=== PATIENT | female | born 1960 | race Caucasian/White ===

== ENCOUNTER 2025-07-12 13:45 | Emergency (ER) | payer OTHER ==
[~2025-07-12] VITALS: Ht 165.1 cm; Wt 65.3 kg
[2025-07-12 14:28] LABS: Hematocrit 40.2 % (36.0-46.0); Hemoglobin 13.8 g/dL (12.2-16.2); Mean Corpuscular Hemoglobin 31.4 pg (28.0-32.0); Mean Corpuscular Volume 91.4 fL (80.0-100.0); Nucleated Red Blood Cells % 0.0 %
--- NOTE | 2025-07-12 14:32 | ED.PDOC ---
GI ASSESSMENT HPI Comments HPI: Tommy 65 y.o female presents to the ED for a chief complaint of right sided abdominal pain radiating to her epigastric region x 3 days. Patient reports pain was initially constant however has been intermittent. She mentions last bowel movement was today . Patient denies any nausea, vomiting, fever, chills, diarrhea. Initial Vitals BP: 137/93 HR: 73 RR: 16 O2: 97% RA Temp: 98.3 F Past Medical History: Diverticulitis dx via colonoscopy Family history of: Pancreatic cancer- mother Past Surgical History: Denies Social History: Denies Allergies: NKDA HPI: Poor Historian. REVIEW OF SYSTEMS: CONSTITUTIONAL: Denies acute: fever, diaphoresis, chills, generalized weakness. HEAD: Denies acute: headache, photophobia Eyes: Denies acute: Double vision, vision loss, eye pain, eye discharge. EARS: Denies acute: tinnitus, hearing loss, ear discharge, ear pain, THROAT: Denies acute: sore throat, swelling, difficulty swallowing , pain with swallowing, change in voice. NECK: Denies acute: neck pain, neck swelling, stiff neck. HEART: Denies acute : chest pain, palpitations, LUNGS: Denies acute: SOB, wheezing, cough, hemoptysis ABDOMEN: Denies acute: Nausea, Vomiting, diarrhea, melena , hematemesis, hematochezia SKIN: Denies acute: rash, redness, lesions, itchiness. EXTREMITIES: Denies acute: calf pain, numbness, tingling, weakness, denies pain in extremity. Denies acute: Low back pain. Neuro: Denies acute: focal neurological deficit, motor or sensory focal neurological deficit, tremors, seizure like activity, confusion, dizziness, change in mental status, loss of bowel or bladder function, cauda equina like symptoms. : Denies acute: dysuria, hematuria, flank pain, increase in urinary frequency. PSYCH: Denies acute: hallucination, suicidal ideation, homicidal ideation. FEMALE: Denies acute: abnormal vaginal bleeding, foul odor, unusual discharge. PHYSICAL EXAM: General: ----no----acute distress, awake and alert. Head: normocephalic, atraumatic. No raccoon's eyes, no hough sign. Neck: supple, trachea is midline, no swelling. Throat: Normal phonation. Eyes:, no erythema, no purulent discharge, no proptosis, no icterus. Heart: regular rate, regular rhythm, no significant murmur appreciated. Lungs: no apparent respiratory distress, Able to speak in full sentences. No wheezing, no rhonchi, no crackles. No stridors Clear to auscultation bilaterally. Abdomen: Mild epigastric tender to palpation, non distended, soft, no guarding, no rebound, + bowel sounds. Mild right lower quadrant tenderness to palpation. Neuro: Awake, Alert, oriented to name, self, situation, follows commands GCS=15. Speech is normal. Skin: no petechia, no purpura, no cyanosis, non-pale, not jaundice. Lower extremities: --no - Pitting edema no deformity, no focal swelling, no calf TTP. Makes eye contact. moves all four extremities. Face: no apparent facial droop. y. Ambulating in the ED independently. ED COURSE: DISCLAIMER: This medical document was created using an electronic medical record system with voice recognition software and computerized dictation system. Although this document has been carefully reviewed, there might still be some phonetic and typographical errors. Occasional wrong-word or "sound-alike" substitutions may h ave occurred due to the inherent limitations of voice recognition software. These areas are purely typographical due to imperfections of the software programs and do not reflect any compromise in the patient's medical care. Please read the chart carefully and recognize, using context, where these substitutions have occurred. Chief Complaint: Abdominal Pain Time Seen by MD: 14:08 Reviewed Notes: Allergies Allergies: Coded Allergies: No Known Drug Allergy (Verified Allergy, Unknown, 07/12/25) Home Meds Active Scripts Ciprofloxacin Hcl (Cipro) 500 Mg Tab, 500 MG PO BID for 7 Days, #14 TAB Prov:ARIANNE ZAPIEN DO 07/12/25 Metronidazole (Flagyl) 500 Mg Tab, 1 TAB PO TID for 7 Days, #21 TAB Prov:ARIANNE ZAPIEN DO 07/12/25 Information Source: Patient Mode of Arrival: Ambulatory Duration: Since onset Was a procedure done? Was a procedure done?: No GI differential Dx Differential Diagnosis: Esophagitis, Gastritis/PUD, Gastroenteritis X-Ray, Labs, Meds, VS Vital Signs Date Time Temp Pulse Resp B/P (MAP) Pulse Ox O2 Delivery O2 Flow Rate FiO2 07/12/25 17:05 98.0 72 18 132/68 (89) 98 98.0 07/12/25 17:05 72 18 98 Room Air 07/12/25 13:47 98.3 73 16 137/93 97 98.3 Lab Test 07/12/25 14:15 07/12/25 14:10 Range/Units White Blood Count 9.8 4.4-10.8 10^3/uL Red Blood Count 4.40 4.0-5.20 10^6/uL Hemoglobin 13.8 12.2-16.2 g/dL Hematocrit 40.2 36.0-46.0 % Mean Corpuscular Volume 91.4 80.0-100.0 fL Mean Corpuscular Hemoglobin 31.4 28.0-32.0 pg Mean Corpuscular Hemoglobin Concent 34.4 32.0-36.0 g/dL Red Cell Distribution Width 13.0 11.8-14.3 % Platelet Count 334 140-450 10^3/uL Mean Platelet Volume 7.1 6.9-10.8 fL Neutrophils (%) (Auto) 58.5 37.0-80.0 % Lymphocytes (%) (Auto) 30.9 10.0-50.0 % Monocytes (%) (Auto) 8.2 0.0-12.0 % Eosinophils (%) (Auto) 1.8 0.0-7.0 % Basophils (%) (Auto) 0.6 0.0-2.0 % Neutrophils # (Auto) 5.7 1.6-8.6 10 ^3/uL Lymphocytes # (Auto) 3.0 0.4-5.4 10 ^3/uL Monocytes # (Auto) 0.8 0-1.3 10 ^3/uL Eosinophils # (Auto) 0.2 0-0.8 10 ^3/uL Basophils # (Auto) 0.1 0-0.2 10 ^3/uL Nucleated Red Blood Cells 0.0 % Sodium Level 139 136-145 mmol/L Potassium Level 4.4 3.5-5.1 mmol/L Chloride Level 102 98-107 mmol/L Carbon Dioxide Level 29 20-31 mmol/L Anion Gap 8 5-15 Blood Urea Nitrogen 14 9-23 mg/dL Creatinine 0.76 0.550-1.02 mg/dL Glomerular Filtration Rate Calc 87 >90 mL/min BUN/Creatinine Ratio 18.4 10.0-20.0 Serum Glucose 93 74-106 mg/dL Lactic Acid Level 1.8 0.4-2.0 mmol/L Calcium Level 10.4 8.7-10.4 mg/dL Total Bilirubin 0.7 0.2-1.0 mg/dL Aspartate Amino Transferase (AST) 84 H 13-40 U/L Alanine Aminotransferase (ALT) 79 H 7-40 U/L Alkaline Phosphatase 114 46-116 U/L Troponin I High Sensitivity < 3 L </=34 ng/L Total Protein 7.8 5.7-8.2 g/dL Albumin 4.7 3.2-4.8 g/dL Lipase 30 12-53 U/L Urine Color Light-yellow Yellow Urine Clarity Clear Clear Urine pH 6.5 5.0-9.0 Urine Specific [place] 1.006 1.001-1.035 Urine Protein Negative Negative Urine Ketones Negative Negative Urine Blood 1+ H Negative /uL Urine Nitrite Negative Negative Urine Bilirubin Negative Negative Urine Urobilinogen Normal Negative mg/dL Urine Leukocyte Esterase Negative Negative /uL Urine RBC 3 0 - 4 /hpf Urine Microscopic WBC < 1 0-5 /HPF Urine Squamous Epithelial Cells Few <5 /hpf Urine Bacteria None seen None Seen /hpf Urine Glucose Normal Normal mg/dL [place] [address] Ph: [phone] DIAGNOSTIC IMAGING Diagnostic Imaging Report : [id number] Signed PATIENT: FLORENCIA WHITE ACCT: [id number] UNIT: [id number] : 1960 LOC: ER ROOM / BED: / AGE / SEX: 65 / F ADM STATUS: REG ER SERVICE 1457 ORDERING PHYSICIAN: ARIANNE ZAPIEN DO PROCEDURE(s): ABPLIV - CT AB PEL WITH IV CON ONLY REASON: epig pain ORDER NUMBER(s): [id number], ACCESSION NUMBER(s): [id number] EXAM: CT CT AB PEL WITH IV CON ONLY History: epig pain Comparison Study: None TECHNIQUE: Multidetector CT of the abdomen was performed from lung bases to pubic symphysis. Imaging was performed with IV contrast. Axial, coronal and sagittal multiplanar reformats were obtained from the axial data set by the technologist. Radiation Dose Information: CT Dose: CTDI volume is 7.08 mGy. Dose-length product is 337.72 mGy*cm FINDINGS: Bibasilar atelectasis. Partially visualized heart is unremarkable. Mild hepatomegaly. Otherwise, liver, spleen, gallbladder, pancreas and adrenal glands unremarkable. Kidneys, ureters mildly distended urinary bladder unremarkable. Uterus and adnexa unremarkable. Stomach is unremarkable. Mild wall thickening of the proximal duodenum. The remainder of the small bowel loops unremarkable. Appendix is unremarkable. Significant wall thickening of the ascending colon with adjacent fat stranding. Colonic diverticulosis. Moderate amount of fecal material within the colon. No evidence of intraperitoneal free air or free fluid. Mild mesenteric edema. No evidence of aortic aneurysm or dissection. Shotty mesenteric lymph nodes. The soft tissues are unremarkable. No evidence of acute osseous abnormalities. IMPRESSION: Significant wall thickening of the ascending colon with adjacent fat stranding. Correlate for Colitis. Colonic diverticulosis with limited evaluation for diverticulitis given Mild mesenteric edema. Mild wall thickening of the duodenum which may be due to inadequate distention Slight Duodenitis. Moderate amount of fecal material within the colon. ATED BY: TING WU DO DICTATED DATE/TIME: 07/12/251699 SIGNED BY: TING WU DO SIGNED DATE/TIME: 07/12/251699 CC: Time of 1ST Reevaluation: 14:26 Reevaluation 1ST: Unchanged Patient Education/Counseling: Diagnosis, Treatment Family Education/Counseling: No Family Present Departure 1 Departure Time of Disposition: 14:36 Impression: Primary Impression: Epigastric pain Additional Impressions: Colitis Constipation Disposition: 01 HOME / SELF CARE / HOMELESS Condition: Stable Additional Instructions: Additional instructions: Please read all instructions provided in this packet carefully. You MUST follow-up with your primary care/family doctor in 1 to 2 days. If you are unable to see your primary care/family doctor, please return to our emergency room for re-assessment and re-evaluation in 1 to 2 days. Return to the emergency room here in our facility or to the nearest ER [facility] if your symptoms change or worsen. CONSULTATIONS: you MUST Follow-up for consultation as soon as possible with: -gastroenterology in 1-2 days. Please call for appointment You MUST call the consultants office yourself to make an appointment. You may need to arrange that through your insurance and/or your primary/family doctor. If you are unable to see the design and sales consultant in 1 to 2 days, you must return to our emergency room (or any other ER of your choice) for re-assessment and re- evaluation. Adequate fluid hydration. Although you have been discharged from the Emergency Department, this does not mean that you have a "clean bill of health". No definitive diagnosis for your symptoms has been made today. It is possible that you are in the process of developing a serious illness. This is why you must return to the ED without fail if any new or worsening symptoms develop. Below is a copy of your radiological report for follow up: [place] [address] Ph: [phone] DIAGNOSTIC IMAGING Diagnostic Imaging Report : [id number] Signed PATIENT: FLORENCIA WHITE ACCT: [id number] UNIT: [id number] : 1960 LOC: ER ROOM / BED: / AGE / SEX: 65 / F ADM STATUS: REG ER SERVICE 1434 ORDERING PHYSICIAN: ARIANNE ZAPIEN DO PROCEDURE(s): ABPLIV - CT AB PEL WITH IV CON ONLY REASON: epig pain ORDER NUMBER(s): [id number], ACCESSION NUMBER(s): [id number] EXAM: CT CT AB PEL WITH IV CON ONLY History: epig pain Comparison Study: None TECHNIQUE: Multidetector CT of the abdomen was performed from lung bases to pubic symphysis. Imaging was performed with IV contrast. Axial, coronal and sagittal multiplanar reformats were obtained from the axial data set by the technologist. Radiation Dose Information: CT Dose: CTDI volume is 7.08 mGy. Dose-length product is 337.72 mGy*cm FINDINGS: Bibasilar atelectasis. Partially visualized heart is unremarkable. Mild hepatomegaly. Otherwise, liver, spleen, gallbladder, pancreas and adrenal glands unremarkable. Kidneys, ureters mildly distended urinary bladder unremarkable. Uterus and adnexa unremarkable. Stomach is unremarkable. Mild wall thickening of the proximal duodenum. The remainder of the small bowel loops unremarkable. Appendix is unremarkable. Significant wall thickening of the ascending colon with adjacent fat stranding. Colonic diverticulosis. Moderate amount of fecal material within the colon. No evidence of intraperitoneal free air or free fluid. Mild mesenteric edema. No evidence of aortic aneurysm or dissection. Shotty mesenteric lymph nodes. The soft tissues are unremarkable. No evidence of acute osseous abnormalities. IMPRESSION: Significant wall thickening of the ascending colon with adjacent fat stranding. Correlate for Colitis. Colonic diverticulosis with limited evaluation for diverticulitis given Mild mesenteric edema. Mild wall thickening of the duodenum which may be due to inadequate distention Slight Duodenitis. Moderate amount of fecal material within the colon. ATED BY: TING WU DO DICTATED DATE/TIME: 07/12/25 170 SIGNED BY: TING WU DO SIGNED DATE/TIME: 07/12/25 1700 CC: e-Prescriptions Ciprofloxacin Hcl (Cipro) 500 Mg Tab 500 MG PO BID for 7 Days, #14 TAB Prov: ARIANNE ZAPIEN DO 07/12/25 Metronidazole (Flagyl) 500 Mg Tab 1 TAB PO TID for 7 Days, #21 TAB Prov: ARIANNE ZAPIEN DO 07/12/25 Discharged With: Self Critical Care Note Critical Care Time?: No I personally scribed for ARIANNE ZAPIEN DO ([email or web address]) on 07/12/25 at 14:32. Electronically submitted by Hollie Shelton ([facility]). I personally scribed for ARIANNE ZAPIEN DO ([email or web address]) on 07/12/25 at 17:13. Electronically submitted by Hollie Shelton ([facility]). I personally scribed for ARIANNE ZAPIEN DO ([email or web address]) on 07/12/25 at 18:53. E lectronically submitted by Hollie Shelton ([facility]). ARIANNE ZAPIEN DO Jul 12, 2025 14:32
[2025-07-12 14:40] LABS: Urine Protein, UAD Negative (Negative)
[2025-07-12 14:48] LABS: Albumin 4.7 g/dL (3.2-4.8); Alkaline Phosphatase 114 U/L (46-116); Anion Gap 8 (5-15); BUN/Creatinine Ratio 18.4 (10.0-20.0); Bilirubin, Total 0.7 mg/dL (0.2-1.0); Blood Urea Nitrogen 14 mg/dL (9-23); Carbon Dioxide 29 mmol/L (20-31); Chloride 102 mmol/L (98-107); Glucose 93 mg/dL (74-106); Lipase 30 U/L (12-53); Potassium 4.4 mmol/L (3.5-5.1); Sodium 139 mmol/L (136-145); Total Protein 7.8 g/dL (5.7-8.2)
[2025-07-12 14:53] LABS: Alanine Aminotransferase 79 U/L (7-40); Calcium 10.4 mg/dL (8.7-10.4)
[2025-07-12] MEDS: IOHEXOL 300 MG/ML 100ML BOTTLE IJ ONE (16:08)
--- NOTE | 2025-07-12 17:02 | DVH ---
EXAM: CT CT AB PEL WITH IV CON ONLY History: epig pain Comparison Study: None TECHNIQUE: Multidetector CT of the abdomen was performed from lung bases to pubic symphysis. Imaging was performed with IV contrast. Axial, coronal and sagittal multiplanar reformats were obtained from the axial data set by the technologist. Radiation Dose Information: CT Dose: CTDI volume is 7.08 mGy. Dose-length product is 337.72 mGy*cm FINDINGS: Bibasilar atelectasis. Partially visualized heart is unremarkable. Mild hepatomegaly. Otherwise, liver, spleen, gallbladder, pancreas and adrenal glands unremarkable. Kidneys, ureters mildly distended urinary bladder unremarkable. Uterus and adnexa unremarkable. Stomach is unremarkable. Mild wall thickening of the proximal duodenum. The remainder of the small bowel loops unremarkable. Appendix is unremarkable. Significant wall thickening of the ascending colon with adjacent fat stranding. Colonic diverticulosis. Moderate amount of fecal material within the colon. No evidence of intraperitoneal free air or free fluid. Mild mesenteric edema. No evidence of aortic aneurysm or dissection. Shotty mesenteric lymph nodes. The soft tissues are unremarkable. No evidence of acute osseous abnormalities. IMPRESSION: Significant wall thickening of the ascending colon with adjacent fat stranding. Correlate for Colitis. Colonic diverticulosis with limited evaluation for diverticulitis given Mild mesenteric edema. Mild wall thickening of the duodenum which may be due to inadequate distention Slight Duodenitis. Moderate amount of fecal material within the colon.
[2025-07-12 17:05] VITALS: BP 132/68; PULSE 72; RESP 18; TEMP 98; O2SAT 98
[2025-07-12] MEDS ORDERED: METR-344 PO (17:23)
[2025-07-12] MEDS ORDERED: CIPR-173 PO (17:23)
== END 2025-07-12 17:51 | disposition home or self-care (01) ==
LOC: ER 13:45
DX: K52.9 Noninfective gastroenteritis and colitis, unspecified (principal); K59.00 Constipation, unspecified
CPT/HCPCS: 36415; 74177; 80053; 81001; 83605; 83690; 84484; 85025; 99285; Q9967